=== PATIENT | male | born 1995 | race Caucasian/White ===

== ENCOUNTER 2016-11-12 20:53 | Emergency (ER) | payer OTHER ==
[2016-11-12] MEDS ORDERED: TYLENOL ONE (22:21)
[2016-11-12] MEDS ORDERED: TYLENOL PO ONE (22:23)
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
[2016-11-13 01:33] VITALS: BP 126/80
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
== END 2016-11-13 03:38 | disposition home or self-care (01) ==
LOC: ED 20:53
DX: M79.1 Myalgia (principal); V49.49XA Driver injured in collision with other motor vehicles in traffic accident, initial encounter; Y93.9 Activity, unspecified; Y92.9 Unspecified place or not applicable; Y99.9 Unspecified external cause status
CPT/HCPCS: 70450; 99284

== ENCOUNTER 2017-12-26 05:33 | Emergency (ER) | payer BC ==
[2017-12-26 06:13] VITALS: BP 122/80
--- NOTE | 2017-12-26 07:50 | Emergency Department Report ---
ED Lower Extremity HPI - General Chief Complaint: Extremity Injury, Lower Stated Complaint: KNEE PAIN Time Seen by Provider: 12/26/17 07:48 Source: patient Mode of arrival: Ambulatory Limitations: No Limitations - History of Present Illness Initial Comments: 22-year-old male past medical history none presents with complaint of left knee pain status post mechanical trip while walking at home early this morning at approximately 2 AM. States that he tripped while walking to bathroom and hit the edge of the bathtub with his left knee. States he felt severe pain. Denies any other injuries. Patient states he has difficulty walking due to left knee pain. Patient is awake alert and oriented 3 accompanied by brother at bedside. Patient visibly flexing and extending his left knee states it is painful to fully extend his left knee. MD Complaint: knee injury -: This morning Injury: Knee: Left Type of Injury: blunt Place: home Severity: moderate Severity scale (0 -10): 6 Improves With: immobilization Worsens With: weight bearing, palpation Context: direct blow Associated Symptoms: swelling, able to partially bear weight - Related Data Previous Rx's Medication Instructions Recorded Last Taken Type Cyclobenzaprine [Flexeril] 10 mg PO QHS PRN #20 tablet 11/13/16 Unknown Rx Ibuprofen [Motrin] 800 mg PO Q8HR PRN #40 tablet 11/13/16 Unknown Rx Ibuprofen [Motrin] 800 mg PO Q8HR PRN #25 tablet 12/26/17 Unknown Rx Allergies Allergy/AdvReac Type Severity Reaction Status Date / Time No Known Allergies Allergy Verified 11/12/16 22:27 ED Review of Systems ROS: Stated complaint: KNEE PAIN Other details as noted in HPI Constitutional: denies: chills, fever Eyes: denies: eye pain, eye discharge, vision change ENT: denies: ear pain, throat pain Respiratory: denies: cough, shortness of breath, wheezing Cardiovascular: denies: chest pain, palpitations Endocrine: no symptoms reported Gastrointestinal: denies: abdominal pain, nausea, diarrhea Genitourinary: denies: urgency, dysuria Musculoskeletal: as per HPI. denies: back pain, joint swelling, arthralgia Skin: denies: rash, lesions Neurological: denies: headache, weakness, paresthesias Psychiatric: denies: anxiety, depression Hematological/Lymphatic: denies: easy bleeding, easy bruising ED Past Medical Hx - Past Medical History Previous Medical History?: No - Surgical History Past Surgical History?: No - Social History Smoking Status: Never Smoker Substance Use Type: None - Medications Home Medications: Home Medications Medication Instructions Recorded Confirmed Last Taken Type Cyclobenzaprine [Flexeril] 10 mg PO QHS PRN #20 tablet 11/13/16 Unknown Rx Ibuprofen [Motrin] 800 mg PO Q8HR PRN #40 tablet 11/13/16 Unknown Rx Ibuprofen [Motrin] 800 mg PO Q8HR PRN #25 tablet 12/26/17 Unknown Rx ED Physical Exam - General Limitations: No Limitations General appearance: alert, in no apparent distress - Head Head exam: Present: atraumatic, normocephalic - Eye Eye exam: Present: normal appearance, PERRL, EOMI - ENT ENT exam: Present: mucous membranes moist - Neck Neck exam: Present: normal inspection - Respiratory Respiratory exam: Present: normal lung sounds bilaterally. Absent: respiratory distress - Cardiovascular Cardiovascular Exam: Present: regular rate, normal rhythm. Absent: systolic murmur, diastolic murmur, rubs, gallop - GI/Abdominal GI/Abdominal exam: Present: soft, normal bowel sounds - Rectal Rectal exam: Present: deferred - Extremities Exam Extremities exam: Present: normal inspection - Expanded Lower Extremity Exam Left Upper Leg exam: Present: normal inspection, full ROM Knee exam: Present: normal inspection, full ROM, tenderness (some tenderness on palpation of anterior left knee), full knee extension Lower Leg exam: Present: normal inspection, full ROM Ankle exam: Present: normal inspection, full ROM Foot/Toe exam: Present: normal inspection, full ROM Neuro vascular tendon exam: Present: no vascular compromise (distal dorsalis pedis and posterior tibial pulses strong to palpation) Gait: Positive: antalgic 1 - Tenderness to palpation here - Back Exam Back exam: Present: normal inspection - Neurological Exam Neurological exam: Present: alert, oriented X3, CN II-XII intact - Expanded Neurological Exam Expanded Sensory exam: Lower Extremity Light Touch: Normal Motor strength exam: LLE: 5 DTR: knee (L): 3+, ankle (L): 3+ - Psychiatric Psychiatric exam: Present: normal affect, normal mood - Skin Skin exam: Present: warm, dry, intact, normal color. Absent: rash ED Course Vital Signs 12/26/17 12/26/17 06:06 07:24 Temperature 98.7 F 98.7 F Pulse Rate 85 85 Respiratory 16 16 Rate Blood Pressure 122/80 122/80 O2 Sat by Pulse 97 97 Oximetry ED Lower Extremity MDM - Medical Decision Making A/P: Left knee contusion 1-knee flexion and extension intact. No significant effusion on palpation. Left lower extremity neurovascular exam wnl. Knee immobilizer, crutches, nonweightbearing for now. RICE therapy 2-x-ray shows no fractures or dislocations of knee joint or patella 3-Motrin 800mg when necessary 4- follow-up with primary care and orthopedics Critical care attestation.: If time is entered above; I have spent that time in minutes in the direct care of this critically ill patient, excluding procedure time. ED Disposition Clinical Impression: Contusion of left knee Qualifiers: Encounter type: initial encounter Qualified Code(s): S80.02XA - Contusion of left knee, initial encounter Disposition: DC-01 TO HOME OR SELFCARE Is pt being admited?: No Does the pt Need Aspirin: No Condition: Stable Instructions: Contusion in Adults (ED), Knee Pain (ED), RICE Therapy (ED) Prescriptions: Ibuprofen [Motrin] 800 mg PO Q8HR PRN #25 tablet PRN Reason: Pain Referrals: [facility] [Provider Group] - 3-5 Days EMIR LEO MD [Staff Physician] - 3-5 Days Forms: Accompanied Note, Work/School Release Form(ED) Time of Disposition: 09:06
[2017-12-26] MEDS ORDERED: NORCO 5/325 PO ONE (07:56)
[2017-12-26] MEDS ORDERED: MOTRIN PO ONE (07:57)
--- NOTE | 2017-12-26 08:39 | XRay Report ---
LEFT KNEE, 4 views: History: Left knee pain. The bony architecture is intact without evidence of fracture or dislocation. No significant soft tissue abnormality is seen. IMPRESSION: Left knee within normal limits.
[2017-12-26] MEDS ORDERED: MOTRIN ONE (08:57)
== END 2017-12-26 09:25 | disposition home or self-care (01) ==
LOC: ED 05:33
DX: S80.02XA Contusion of left knee, initial encounter (principal); W01.198A Fall on same level from slipping, tripping and stumbling with subsequent striking against other object, initial encounter; Y93.01 Activity, walking, marching and hiking; Y99.8 Other external cause status; Y92.009 Unspecified place in unspecified non-institutional (private) residence as the place of occurrence of the external cause

== ENCOUNTER 2019-06-03 14:56 | Emergency (ER) | payer BC ==
[2019-06-03 15:09] VITALS: BP 137/86
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
[2019-06-03] MEDS ORDERED: SODIUM CHLORIDE 0.9% 500 ML 500 ML IV ONE (16:59)
--- NOTE | 2019-06-03 17:20 | Emergency Department Report ---
ED Eye Problem HPI - General Chief complaint: Eye Problems Stated complaint: BLEACH IN RT EYE Time Seen by Provider: 06/03/19 15:08 Source: patient Mode of arrival: Ambulatory Limitations: No Limitations - History of Present Illness Initial comments: Patient is a 23-year-old male who presents to emergency room with complaints of left eye burning that began just prior to arrival. Patient states that he was fixing a drain and bleach and other liquids fell onto his face and left eye. States he washed the eye for about 15 minutes. He denies any vision changes. he denies any allergies to meds. - Related Data Previous Rx's Medication Instructions Recorded Last Taken Type Cyclobenzaprine [Flexeril] 10 mg PO QHS PRN #20 tablet 11/13/16 Unknown Rx Ibuprofen [Motrin] 800 mg PO Q8HR PRN #40 tablet 11/13/16 Unknown Rx Ibuprofen [Motrin] 800 mg PO Q8HR PRN #25 tablet 12/26/17 Unknown Rx Erythromycin [Erythromycin Ophth 1 applic OS QID 7 Days #1 tube 06/03/19 Unknown Rx Oint] Allergies Allergy/AdvReac Type Severity Reaction Status Date / Time No Known Allergies Allergy Verified 11/12/16 22:27 ED Review of Systems ROS: Stated complaint: BLEACH IN RT EYE Other details as noted in HPI Comment: All other systems reviewed and negative ED Past Medical Hx - Past Medical History Hx Pulmonary Embolism: Yes (depression) - Surgical History Past Surgical History?: No - Social History Smoking Status: Never Smoker Substance Use Type: None - Medications Home Medications: Home Medications Medication Instructions Recorded Confirmed Last Taken Type Cyclobenzaprine [Flexeril] 10 mg PO QHS PRN #20 tablet 11/13/16 Unknown Rx Ibuprofen [Motrin] 800 mg PO Q8HR PRN #40 tablet 11/13/16 Unknown Rx Ibuprofen [Motrin] 800 mg PO Q8HR PRN #25 tablet 12/26/17 Unknown Rx Erythromycin [Erythromycin Ophth 1 applic OS QID 7 Days #1 tube 06/03/19 Unknown Rx Oint] ED Physical Exam - General Limitations: No Limitations General appearance: alert, in no apparent distress - Head Head exam: Present: atraumatic, normocephalic - Eye Eye exam: Present: PERRL, EOMI, conjunctival injection (very mild left sided injection ), other (fluorocein and logan lamp used with very small area of uptake approximately 0.1 mm, no foreign body) - Neurological Exam Neurological exam: Present: alert, oriented X3 - Psychiatric Psychiatric exam: Present: normal affect, normal mood - Skin Skin exam: Present: warm, dry, other (very small areas of erythema to the bilateral cheeks, no blistering, no skin denuding) ED Course Vital Signs 06/03/19 15:08 Temperature 97.9 F Pulse Rate 91 H Respiratory 18 Rate Blood Pressure 137/86 O2 Sat by Pulse 97 Oximetry ED Medical Decision Making - Medical Decision Making Patient is a 23-year-old male who presents to emergency room with complaints of left eye burning that began just prior to arrival. Patient states that he was fixing a drain and bleach and other liquids fell onto his face and left eye. States he washed the eye for about 15 minutes. He denies any vision changes. he denies any allergies to meds. VSS. on exam: fluorocein and logan lamp used with very small area of uptake approximately 0.1 mm, no foreign body, very mild left sided injection. sofia lens used and eye washed with 500 cc of normal saline. pt states the burning sensation has completely resolved. pts visual acuity is normal (Bilateral 20/15, right 20/20, left 20/20). given prescription for erythromycin ophthalmic ointment. advised pt to please use medication as prescribed. avoid rubbing the eye. do not put anything else in the eye except for the antibiotics. wash your hands frequently. do not put anything on your skin irritation, may wash with soap and water and immediately dry. follow up with an surveillance agent in the next 2-3 days. return to the emergency room for any new or worsening symptoms. - Differential Diagnosis corneal abrasion, corneal burn, conjunctivitis, iritis Critical care attestation.: If time is entered above; I have spent that time in minutes in the direct care of this critically ill patient, excluding procedure time. ED Disposition Clinical Impression: Chemical exposure of eye, Skin irritation Disposition: DC-01 TO HOME OR SELFCARE Is pt being admited?: No Does the pt Need Aspirin: No Condition: Stable Instructions: Chemical Eye Tam (ED) Additional Instructions: please use medication as prescribed. avoid rubbing the eye. do not put anything else in the eye except for the antibiotics. wash your hands frequently. do not put anything on your skin irritation, may wash with soap and water and immediately dry. follow up with an ophthamologist in the next 2-3 days. return to the emergency room for any new or worsening symptoms. Prescriptions: Erythromycin [Erythromycin Ophth Oint] 1 applic OS QID 7 Days #1 tube Referrals: CHANTELLE SMITH MD [Staff Physician] - 2-3 Days [facility] [Provider Group] - 2-3 Days Forms: Work/School Release Form(ED) Time of Disposition: 19:14 Print Language: SERBIAN
[2019-06-03] MEDS ORDERED: FLUORESCEIN 1 MG STRIP OP ONE ×2 (19:01→19:05)
[2019-06-03] MEDS ORDERED: TETRACAINE 0.5% OPHTH SOLN 4ML OU ONE (19:01)
[2019-06-03] MEDS ORDERED: TETRACAINE 0.5% OPHTH SOLN 4ML ONE (19:05)
== END 2019-06-03 19:59 | disposition home or self-care (01) ==
LOC: ED 14:56
DX: T75.89XA Other specified effects of external causes, initial encounter (principal); F32.9 Major depressive disorder, single episode, unspecified; Z79.899 Other long term (current) drug therapy; X58.XXXA Exposure to other specified factors, initial encounter; Y93.89 Activity, other specified; Y92.89 Other specified places as the place of occurrence of the external cause; Y99.8 Other external cause status
CPT/HCPCS: 99282; J7040

== ENCOUNTER 2021-10-01 01:52 | Emergency (ER) | payer SELFPAY ==
[2021-10-01 02:15] VITALS: BP 140/90
--- NOTE | 2021-10-01 07:03 | Emergency Department Report ---
- General Chief Complaint: Upper Respiratory Infection Stated Complaint: COVID SYMPTOMS PUI?: Yes Time Seen by Provider: 10/01/21 05:57 Source: patient Mode of arrival: Ambulatory Limitations: No Limitations - History of Present Illness MD Complaint: sore throat, rhinorrhea, nasal congestion -: Gradual, days(s) (2) Severity: moderate Quality: dull Consistency: constant Context: sick contacts Associated Symptoms: denies other symptoms, rhinorrhea, nausea. denies: chills, diaphoresis, cough, chest pain, shortness of breath, diarrhea, dysuria, confusion, weight loss, epistaxis Treatments Prior to Arrival: none - Related Data Previous Rx's Medication Instructions Recorded Last Taken Type Cyclobenzaprine [Flexeril] 10 mg PO QHS PRN #20 tablet 11/13/16 Unknown Rx Ibuprofen [Motrin] 800 mg PO Q8HR PRN #40 tablet 11/13/16 Unknown Rx Ibuprofen [Motrin] 800 mg PO Q8HR PRN #25 tablet 12/26/17 Unknown Rx Erythromycin [Erythromycin Ophth 1 applic OS QID 7 Days #1 tube 06/03/19 Unknown Rx Oint] Ondansetron [Zofran Odt] 4 mg PO Q8HR #20 tab.rapdis 10/01/21 Unknown Rx Allergies Allergy/AdvReac Type Severity Reaction Status Date / Time No Known Allergies Allergy Verified 11/12/16 22:27 ED Review of Systems ROS: Stated complaint: COVID SYMPTOMS Other details as noted in HPI Comment: All other systems reviewed and negative ED Past Medical Hx - Past Medical History Previous Medical History?: Yes Hx Pulmonary Embolism: Yes (depression) - Surgical History Past Surgical History?: No - Social History Smoking Status: Never Smoker Substance Use Type: None - Medications Home Medications: Home Medications Medication Instructions Recorded Confirmed Last Taken Type Cyclobenzaprine [Flexeril] 10 mg PO QHS PRN #20 tablet 11/13/16 Unknown Rx Ibuprofen [Motrin] 800 mg PO Q8HR PRN #40 tablet 11/13/16 Unknown Rx Ibuprofen [Motrin] 800 mg PO Q8HR PRN #25 tablet 12/26/17 Unknown Rx Erythromycin [Erythromycin Ophth 1 applic OS QID 7 Days #1 tube 06/03/19 Unknown Rx Oint] Ondansetron [Zofran Odt] 4 mg PO Q8HR #20 tab.rapdis 10/01/21 Unknown Rx ED Physical Exam - General Limitations: No Limitations General appearance: alert, in no apparent distress - Head Head exam: Present: atraumatic, normocephalic - Eye Eye exam: Present: normal appearance, PERRL, EOMI Pupils: Present: normal accommodation - ENT ENT exam: Present: normal exam, normal orophraynx, mucous membranes moist, TM's normal bilaterally - Neck Neck exam: Present: normal inspection, full ROM - Respiratory Respiratory exam: Present: normal lung sounds bilaterally. Absent: respiratory distress - Cardiovascular Cardiovascular Exam: Present: regular rate, normal rhythm. Absent: systolic murmur, diastolic murmur, rubs, gallop - GI/Abdominal GI/Abdominal exam: Present: soft, normal bowel sounds. Absent: distended, tenderness, hyperactive bowel sounds - Rectal Rectal exam: Present: deferred - Extremities Exam Extremities exam: Present: normal inspection - Back Exam Back exam: Present: normal inspection - Neurological Exam Neurological exam: Present: alert, oriented X3 - Psychiatric Psychiatric exam: Present: normal affect, normal mood - Skin Skin exam: Present: warm, dry, intact, normal color. Absent: rash ED Course Vital Signs 10/01/21 02:13 Temperature 98.8 F Pulse Rate 122 H Respiratory 18 Rate Blood Pressure 140/90 O2 Sat by Pulse 93 Oximetry Critical care attestation.: If time is entered above; I have spent that time in minutes in the direct care of this critically ill patient, excluding procedure time. ED Disposition Clinical Impression: URI (upper respiratory infection), Nausea Disposition: 01 HOME / SELF CARE / HOMELESS Is pt being admited?: No Does the pt Need Aspirin: No Condition: Stable Instructions: Cool Mist Vaporizer, Nausea, Adult, Upper Respiratory Infection, Adult, [id number] Prescriptions: Ondansetron [Zofran Odt] 4 mg PO Q8HR #20 tab.rapdis Referrals: [facility] [Provider Group] - 3-5 Days Forms: Work/School Release Form(ED)
== END 2021-10-01 08:01 | disposition home or self-care (01) ==
LOC: ED 01:52
DX: J06.9 Acute upper respiratory infection, unspecified (principal); R11.0 Nausea
CPT/HCPCS: 99282

== ENCOUNTER 2022-01-29 21:08 | Emergency (ER) | payer SELFPAY ==
[2022-01-29 21:14] VITALS: BP 141/80
[2022-01-29] MEDS ORDERED: TETANUS,DIPH,PERTUSS(ACELL) VACCINE 0.5 ML SYRINGE IM ONE (21:40)
[2022-01-29] MEDS ORDERED: IBUPROFEN 600 MG TAB PO ONE (21:40)
[2022-01-29] MEDS ORDERED: LIDOCAINE (1%) 10 MG/1 ML VIAL 20 ML MDV INFILTRATI ONE (21:40)
--- NOTE | 2022-01-29 23:00 | Emergency Department Report ---
ED Upper Extremity Inj HPI - General Chief Complaint: Wound/Laceration Stated Complaint: LEFT INDEX FINGER Source: patient Mode of arrival: Ambulatory Limitations: No Limitations - History of Present Illness Initial Comments: Patient is a 26-year-old [place] male with past medical history of morbid obesity who presents to the ED with complaint of acute onset painful bleeding left palm laceration wound that he sustained when cutting a piece of object at work about 1 hour ago. Patient states that the bleeding is well controlled at this time. Patient states that he is not up-to-date with tetanus vaccination. Patient denies numbness and tingling or weakness of left hand, dizziness, syncope, nausea and vomiting, fall, heavy lifting or headache or lightheadedness. MD Complaint: Injury to:: left, hand (left palm laceration) -: hour(s) (2) Other Extremity Injury: Hand: Left (left hand laceration wound) Other Injuries: none Place: work Severity scale (0 -10): 6 Improves With: none Worsens With: movement of extremity Context: laceration, injury Associated Symptoms: denies other symptoms. denies: weakness, numbness, neck pain, suspects foreign body, nausea/vomiting, heard/felt popping sensat Treatments Prior to Arrival: bandage, NSAIDS - Related Data Previous Rx's Medication Instructions Recorded Last Taken Type Cyclobenzaprine [Flexeril] 10 mg PO QHS PRN #20 tablet 11/13/16 Unknown Rx Ibuprofen [Motrin] 800 mg PO Q8HR PRN #25 tablet 12/26/17 Unknown Rx Erythromycin [Erythromycin Ophth 1 applic OS QID 7 Days #1 tube 06/03/19 Unknown Rx Oint] Ondansetron [Zofran Odt] 4 mg PO Q8HR #20 tab.rapdis 10/01/21 Unknown Rx Ibuprofen [Motrin 800 MG tab] 800 mg PO Q8HR PRN #30 tablet 01/29/22 Unknown Rx cephALEXin [Keflex] 500 mg PO Q8HR #30 cap 01/29/22 Unknown Rx Allergies Allergy/AdvReac Type Severity Reaction Status Date / Time No Known Allergies Allergy Verified 01/29/22 21:14 ED Review of Systems ROS: Stated complaint: LEFT INDEX FINGER Other details as noted in HPI Constitutional: denies: chills, fever Eyes: denies: eye pain, eye discharge, vision change ENT: denies: ear pain, throat pain Respiratory: denies: cough, shortness of breath, wheezing Cardiovascular: denies: chest pain, palpitations Endocrine: no symptoms reported Gastrointestinal: denies: abdominal pain, nausea, diarrhea Genitourinary: denies: urgency, dysuria Musculoskeletal: arthralgia (Left palm laceration wound with localized pain). denies: back pain, joint swelling Skin: other (Bleeding left palm laceration wound). denies: rash, lesions Neurological: denies: headache, weakness, paresthesias Psychiatric: denies: anxiety, depression Hematological/Lymphatic: denies: easy bleeding, easy bruising ED Past Medical Hx - Past Medical History Previous Medical History?: No Hx Psychiatric Treatment: Yes (Anxiety and depression) - Surgical History Past Surgical History?: No - Social History Smoking Status: Never Smoker Substance Use Type: None - Medications Home Medications: Home Medications Medication Instructions Recorded Confirmed Last Taken Type Cyclobenzaprine [Flexeril] 10 mg PO QHS PRN #20 tablet 11/13/16 Unknown Rx Ibuprofen [Motrin] 800 mg PO Q8HR PRN #25 tablet 12/26/17 Unknown Rx Erythromycin [Erythromycin Ophth 1 applic OS QID 7 Days #1 tube 06/03/19 Unknown Rx Oint] Ondansetron [Zofran Odt] 4 mg PO Q8HR #20 tab.rapdis 10/01/21 Unknown Rx Ibuprofen [Motrin 800 MG tab] 800 mg PO Q8HR PRN #30 tablet 01/29/22 Unknown Rx cephALEXin [Keflex] 500 mg PO Q8HR #30 cap 01/29/22 Unknown Rx ED Physical Exam - General Limitations: No Limitations General appearance: alert, in no apparent distress - Head Head exam: Present: atraumatic, normocephalic, normal inspection - Eye Eye exam: Present: normal appearance, PERRL, EOMI Pupils: Present: normal accommodation - ENT ENT exam: Present: normal exam, normal orophraynx, mucous membranes moist, TM's normal bilaterally, normal external ear exam - Neck Neck exam: Present: normal inspection, full ROM. Absent: tenderness - Respiratory Respiratory exam: Present: normal lung sounds bilaterally. Absent: respiratory distress, wheezes, rales, rhonchi, chest wall tenderness, accessory muscle use, decreased breath sounds, prolonged expiratory - Cardiovascular Cardiovascular Exam: Present: regular rate, normal rhythm, normal heart sounds. Absent: systolic murmur, diastolic murmur, rubs, gallop - GI/Abdominal GI/Abdominal exam: Present: soft, normal bowel sounds. Absent: tenderness, guarding, rebound, hyperactive bowel sounds, hypoactive bowel sounds, organomegaly, mass - Extremities Exam Extremities exam: Present: normal inspection, full ROM, tenderness (Palpable left hand tenderness due to a bleeding 3 cm laceration wound on left palm), normal capillary refill. Absent: pedal edema, joint swelling, calf tenderness - Back Exam Back exam: Present: normal inspection, full ROM. Absent: tenderness, CVA tenderness (R), CVA tenderness (L), muscle spasm, paraspinal tenderness, vertebral tenderness - Neurological Exam Neurological exam: Present: alert, oriented X3, CN II-XII intact, normal gait, reflexes normal - Psychiatric Psychiatric exam: Present: normal affect, normal mood, anxious - Skin Skin exam: Present: warm, dry, intact, normal color, other (Bleeding 3 cm laceration wound on left palm). Absent: rash ED Course Vital Signs 01/29/22 01/29/22 21:10 22:10 Temperature 97.6 F Pulse Rate 96 H Respiratory 18 18 Rate Blood Pressure 141/80 [Left] O2 Sat by Pulse 96 Oximetry - Laceration /Wound Repair Left Palm Hand Wound Location: upper extremity (left palm laceration) Wound Length (cm): 3 Wound's Depth, Shape: into muscle, linear Wound Explored: contaminated Irrigated w/ Saline (ccs): 200 Betadine Prep?: Yes Anesthesia: 1% Lidocaine Volume Anesthetic (ccs): 7 Wound Debrided: extensive Wound Repaired With: sutures Suture Size/Type: 3:0, proline Number of Sutures: 6 Sterile Dressing Applied?: Yes Progress: The wound was cleaned extensively with normal saline and Betadine solutions. Lidocaine 1% solution was used as a local anesthetic. When anesthesia was fully achieved, the wound was sutured per protocol using Prolene 3-0 sutures, for a total of 6 sutures. The wound was then cleaned and dressed appropriately with 4 x 4 gauzes and Kerlix. Patient tolerated the procedure well. Patient was discharged home on pain medication and prophylactic antibiotics and advised to have the sutures removed in 12 to 14 days or return to the ED immediately if symptoms get worse. ED Medical Decision Making - Medical Decision Making This is a 26-year-old [place] male with past medical history of morbid obesity who presents to the ED with complaint of acute onset painful bleeding left palm laceration wound that he sustained when cutting a piece of object at work about 1 hour ago. Patient states that the bleeding is well controlled at this time. Patient states that he is not up-to-date with tetanus vaccination. In the ED, patient is alert and oriented x3 and is not in any distress. Patient was treated for pain in the ED. Patient also received booster tetanus vaccinations. The wound was cleaned extensively with normal saline and Betadine solutions. Lidocaine 1% solution was used as a local anesthetic. When anesthesia was fully achieved, the wound was sutured per protocol using Prolene 3-0 sutures, for a total of 6 sutures. The wound was then cleaned and dressed appropriately with 4 x 4 gauzes and Kerlix. Patient tolerated the procedure well. Patient was discharged home on pain medication and prophylactic antibiotics and advised to have the sutures removed in 12 to 14 days or return to the ED immediately if symptoms get worse. - Differential Diagnosis Puncture wound; hand laceration; hand injury Critical care attestation.: If time is entered above; I have spent that time in minutes in the direct care of this critically ill patient, excluding procedure time. ED Disposition Clinical Impression: Laceration of left palm without complication Qualifiers: Encounter type: initial encounter Qualified Code(s): S61.412A - Laceration without foreign body of left hand, initial encounter Injury of left hand Qualifiers: Encounter type: initial encounter Qualified Code(s): S69.92XA - Unspecified injury of left wrist, hand and finger(s), initial encounter Disposition: 01 HOME / SELF CARE / HOMELESS Is pt being admited?: No Does the pt Need Aspirin: No Condition: Stable Instructions: Laceration Care, Adult, [id number], Sutures, [place], or Adhesive Wound Closure, [id number], Sutured Wound Care, [id number] Additional Instructions: Take medication with food, drink plenty of fluids, follow-up with your primary care physician in 7 to 10 days for reevaluation. Return to the ED immediately if symptoms get worse. Otherwise return to the ED in 12 to 14 days for suture removal. Prescriptions: cephALEXin [Keflex] 500 mg PO Q8HR #30 cap Ibuprofen [Motrin 800 MG tab] 800 mg PO Q8HR PRN #30 tablet PRN Reason: Pain Referrals: [facility] [Provider Group] - 7-10 days Time of Disposition: 22:55 Print Language: LATVIAN
== END 2022-01-29 23:46 | disposition home or self-care (01) ==
LOC: ED 21:08
DX: S61.412A Laceration without foreign body of left hand, initial encounter (principal); S69.92XA Unspecified injury of left wrist, hand and finger(s), initial encounter; X58.XXXA Exposure to other specified factors, initial encounter; Y93.89 Activity, other specified; Y92.89 Other specified places as the place of occurrence of the external cause; Y99.8 Other external cause status
CPT/HCPCS: 90471; 90715; 99282